=== PATIENT | male | born 1995 | race African-American/Black ===

== ENCOUNTER 2022-03-18 10:31 | Emergency (ER) | payer OTHER, SELFPAY ==
[2022-03-18 10:43] VITALS: BP 118/74; PULSE 120; RESP 16; TEMP 38.9; O2SAT 98
[2022-03-18 11:06] VITALS: BP 118/74; PULSE 120; RESP 16; TEMP 38.9; O2SAT 98
--- NOTE | 2022-03-18 11:20 | ED.URI ---
HPI - URI/Sore Throat General Chief Complaint: Upper Respiratory Infection Stated Complaint: congestion, asthma, productive cough Time Seen by Provider: 03/18/22 11:20 Source: patient and RN notes reviewed Mode of arrival: ambulatory Limitations: no limitations History of Present Illness HPI Narrative: 26-year-old male with history of asthma presents with concern for one-week history of cough, body aches, nasal congestion and chest congestion. Reports yesterday he started having pain in his left upper cheek. He reports he last used his inhaler this morning. He also reports recent increase in anxiety. MD elicited complaint: cough and nasal congestion Related Data Home Medications Medication Instructions Recorded Confirmed albuterol 03/18/22 Allergies Allergy/AdvReac Type Severity Reaction Status Date / Time No Known Allergies Allergy Verified 03/18/22 10:44 Review of Systems Review of Systems: CONSTITUTIONAL: Reports malaise, chills, sweats EYES: Denies visual changes, redness, or discharge. ENT: Reports rhinorrhea, congestion, sinus pain. Denies otalgia and sore throat. CARDIOVASCULAR: Denies chest pain, palpitations, or edema. RESPIRATORY: Reports cough. Denies dyspnea. GASTROINTESTINAL: Denies abdominal pain, nausea, vomiting, diarrhea SKIN: Denies rash or itching. MUSCULOSKELETAL: Reports myalgia. NEUROLOGIC: Denies headache. All systems reviewed & are unremarkable except as noted in HPI and below PMFSH Comments At time of signature, agree with nursing past medical, surgical, social and family history. There is no relevant family history pertinent to the presenting complaint Exam Narrative: GENERAL: Well-appearing, well-nourished, and in no acute distress. HEAD: Normocephalic EYES: PERRLA, conjunctivae clear ENT: Nares clear, turbinates edematous and erythematous, green discharge. Mucous membranes moist. TM pearly malcolm with sharp light reflex bilaterally; no tragal tenderness, no preauricular or postauricular tenderness, erythema, warmth. Oropharynx not erythematous without lesions. Tonsils not enlarged and without exudate, no drooling, no hoarseness, no trismus, uvula midline. Grossly normal dentation, no dental tenderness on the left upper teeth, no visible or palpable abscesses NECK: Supple. No lymphadenopathy CHEST: Scattered wheeze, otherwise Clear to auscultation, breath sounds equal. No rhonchi, rales, or stridor. No respiratory distress, speaks in full sentences. HEART: Regular rate and rhythm. No murmur heard. SKIN: Warm, dry, no rash. NEURO: Alert and oriented x3. PSYCH: Normal mood and affect Course Course Emergency Course: Patient is aware of diagnosis, understands and agrees to treatment plan. Anticipatory guidance given. Patient agrees to follow-up as directed and is aware of reasons to seek care at the emergency department. Portions of this record may have been created with voice recognition software Level of Care: Express Care Visit Vital Signs Vital signs: Vital Signs Temperature 102.0 F H 03/18/22 10:43 Pulse Rate 120 H 03/18/22 10:43 Respiratory Rate 16 03/18/22 10:43 Blood Pressure 118/74 03/18/22 10:43 Pulse Oximetry 98 03/18/22 10:43 Oxygen Delivery Room Air 03/18/22 10:43 Temperature 102.0 F H 03/18/22 11:06 Pulse Rate 120 H 03/18/22 11:06 Respiratory Rate 16 03/18/22 11:06 Blood Pressure 118/74 03/18/22 11:06 Pulse Oximetry 98 03/18/22 11:06 Oxygen Delivery Room Air 03/18/22 11:06 Reviewed. MDM - URI/Sore Throat MDM Narrative Medical decision making narrative: Differential diagnosis considered: Kim virus, strep pharyngitis, allergic rhinitis, upper respiratory tract infection, sinusitis, rhinosinusitis, nasopharyngitis. viral pharyngitis, otitis media, otitis externa, pneumonia, bronchitis, viral cough syndrome, viral syndrome, and influenza. Exam findings show no acute concerns or changes; patient is non-toxic appearing an
== END 2022-03-18 11:32 | disposition home or self-care (01) ==
PROVIDERS: Emergency Provider Nurse Practitioner
DX: J06.9 Acute upper respiratory infection, unspecified (principal); J45.909 Unspecified asthma, uncomplicated; Z20.822 Contact with and (suspected) exposure to COVID-19
CPT/HCPCS: 87081; 87426; 87804; 87880; 99213; C9803; G0463

== ENCOUNTER 2022-09-13 14:55 | Emergency (ER) | payer OTHER, SELFPAY ==
[2022-09-13 14:57] VITALS: BP 137/79; PULSE 98; RESP 16; TEMP 37; O2SAT 100
[2022-09-13 15:10] LABS: Basophils Absolute Auto 0.1 K/mm3 (0.0-0.1); Basophils Percent Auto 0.7 % (0.2-1.2); Eosinophils Absolute Auto 0.2 K/mm3 (0-0.3); Eosinophils Percent Auto 2.6 % (0-4.4); Hematocrit 43.1 % (42.0-52.0); Hemoglobin 14.2 g/dL (14.0-18.0); Immature Granulocyte Absolute 0.01 K/mm3 (0.00-0.031); Immature Granulocyte Percent A 0.1 % (0-0.5); Lymphocytes Percent Auto 38.1 % (18.3-44.2); Mean Corpuscular HGB Conc 32.9 g/dl (32-36); Mean Corpuscular Hemoglobin 30.5 pg (26-34); Mean Corpuscular Volume 92.7 fl (80-100); Mean Platelet Volume 8.3 fl (7.4-10.4); Monocytes Absolute Auto 0.9 K/mm3 (0.1-0.6); Monocytes Percent Auto 11.3 % (2.6-8.5); Neutrophils Absolute Auto 3.6 K/mm3 (1.3-6.7); Neutrophils Percent Auto 47.2 % (45.5-73.1); Platelet Count Result 291 k/mm3 (150-375); Red Blood Count 4.65 M/mm3 (4.6-6.20); Red Cell Distribution Width 12.9 % (11.5-14.5); White Blood Count 7.6 K/mm3 (4.5-10.0)
--- NOTE | 2022-09-13 15:11 | PC.NURSE ---
patient refusing to give any more blood and will not give a urine specimen
[2022-09-13 15:23] LABS: Alanine Aminotransferase 16 U/L (6-50); Albumin Level 4.7 g/dL (3.5-5.1); Alkaline Phosphatase 35 U/L (38-126); Anion Gap 5 mmol/L (8-16); Aspartate Amino Transferase 28 U/L (17-59); Bilirubin,Total 0.8 mg/dL (0.2-1.3); Blood Urea Nitrogen 11 mg/dL (9-20); Calcium 9.3 mg/dL (8.4-10.2); Carbon Dioxide 28 mmol/L (22-30); Chloride 104 mmol/L (98-107); Estimated Glomerular Filt Rate > 60; Glucose 94 mg/dL (65-110); Potassium 3.9 mmol/L (3.4-5.0); Sodium 137 mmol/L (137-145)
[2022-09-13 16:11] LABS: Ethanol < 10 mg/dL (<10)
--- NOTE | 2022-09-13 16:18 | PC.NURSE ---
patient verbalized frustration regarding not seeing a provider since he has been here. counseling information given and discussed with patient at this time. patient denies SI/HI at this time
--- NOTE | 2022-09-13 17:11 | PC.NURSE ---
Pt not found in room. Angelita FRY gave pt information for crisis counseling prior to pt walking out.
== END 2022-09-13 17:11 | disposition left against medical advice (07) ==
PROVIDERS: Emergency Provider Emergency Medicine
DX: R45.89 Other symptoms and signs involving emotional state (principal)
CPT/HCPCS: 36415; 80053; 80307; 84443; 85025; 99199

== ENCOUNTER 2023-11-20 09:21 | Emergency (ER) | payer OTHER, SELFPAY ==
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
[2023-11-20 09:25] VITALS: BP 144/87; PULSE 89; RESP 15; TEMP 36.5; O2SAT 100
[2023-11-20 10:32] VITALS: BP 119/77; PULSE 77; RESP 15; O2SAT 100
[2023-11-20] MEDS: ACETAMINOPHEN 500 MG TABLET 1000 MG PO (10:50)
[2023-11-20] MEDS: IBUPROFEN 600 MG TABLET PO (10:50)
[2023-11-20] MEDS: CYCLOBENZAPRINE HCL 10 MG TABLET PO (10:51)
[2023-11-20 11:09] VITALS: BP 126/90; PULSE 67; RESP 15; TEMP 36.6; O2SAT 100
== END 2023-11-20 11:11 | disposition home or self-care (01) ==
PROVIDERS: Emergency Provider Nurse Practitioner
DX: S16.1XXA Strain of muscle, fascia and tendon at neck level, initial encounter (principal); S39.012A Strain of muscle, fascia and tendon of lower back, initial encounter; J45.909 Unspecified asthma, uncomplicated; V43.52XA Car driver injured in collision with other type car in traffic accident, initial encounter
CPT/HCPCS: 72125; 72128; 72131; 99284; A9270; L0140